=== PATIENT | female | born 1980 | race Two or more races ===

== ENCOUNTER → 2017-11-24 | Emergency (ER) | payer OTHER ==
[~2017-11-24] VITALS: Ht 162.6 cm; Wt 99.3 kg
[~2017-11-24] MED LIST: ALBUTEROL0.63 MG/3 IH; AMOX1TAB12 PO; BENADRYL25 MG PO; DOLOGEN CAPLET1 TAB PO; FLOVENT HFA12 G1 IH; GILTUSS TR TAB1 EACH PO; HYDROCORTISONE28 G3 TP; INTESTINEX1 CAP PO; IRON1 TA1; MEDROL4 MG PO; MEDROLPACK PO; MOTRIN800 MG PO; NEURONTIN800 MG PO; ORPH100T PO; OSEL75CA PO; PRENATAL1 TAB; PROTONIX40 MG PO; PROVENTIL3 ML/2.5 M IH; QVAR7.3 G1 IH; SINGULAIR 10MG10 MG PO; SINGULAIR10 MG; TESSALON PERLE100 M1 PO; TUSSI PRES-B L120 M1 PO; TUSSI-PRES LIQ118 ML PO; XOPENEX HFA15 GM IH; XOPENEX1.25 MG/0. IH; ZITHROMAX TRI-500 MG PO; ZYNCOF 20-400120 ML PO; ZYRTEC10 M3 PO; [UNRECOGNIZED DRUG - OTHER]
== END | disposition home or self-care (01) ==
LOC: ER 10:03
DX: J45.998 Other asthma (principal)

== ENCOUNTER 2018-02-07 10:22 | Emergency (ER) | payer OTHER ==
[~2018-02-07] VITALS: Ht 162.6 cm; Wt 95.3 kg
[2018-02-07] MEDS ORDERED: ALBUTEROL2.5 MG/3 M (10:51)
[2018-02-07] MEDS ORDERED: SINGULAIR10 MG (10:52)
== END 2018-02-07 13:48 | disposition home or self-care (01) ==
LOC: ER 10:22
DX: J45.998 Other asthma (principal)

== ENCOUNTER 2018-02-15 17:03 | Emergency (ER) | payer OTHER ==
[~2018-02-15] VITALS: Ht 162.6 cm; Wt 94.8 kg
[~2018-02-15 17:03] MED LIST changes: +ALBUTEROL2.5 MG/3 M
== END 2018-02-15 20:32 | disposition home or self-care (01) ==
LOC: ER 17:03
DX: J06.9 Acute upper respiratory infection, unspecified (principal); J11.1 Influenza due to unidentified influenza virus with other respiratory manifestations; L30.9 Dermatitis, unspecified

== ENCOUNTER 2018-04-28 11:47 | Emergency (ER) | payer OTHER ==
[~2018-04-28] VITALS: Ht 162.6 cm; Wt 98.0 kg
== END 2018-04-28 13:05 | disposition home or self-care (01) ==
LOC: ER 11:47
DX: R06.02 Shortness of breath (principal)

== ENCOUNTER 2018-06-03 05:13 | Emergency (ER) | payer OTHER ==
[~2018-06-03] VITALS: Ht 162.6 cm; Wt 99.8 kg
== END 2018-06-03 12:56 | disposition home or self-care (01) ==
LOC: ER 05:13
DX: J06.9 Acute upper respiratory infection, unspecified (principal); J40 Bronchitis, not specified as acute or chronic

== ENCOUNTER 2018-08-30 16:27 | Emergency (ER) | payer OTHER ==
[~2018-08-30] VITALS: Ht 162.6 cm; Wt 98.0 kg
== END 2018-08-30 18:19 | disposition home or self-care (01) ==
LOC: ER 16:27
DX: J06.9 Acute upper respiratory infection, unspecified (principal)

== ENCOUNTER 2018-11-17 08:53 | Emergency (ER) | payer OTHER ==
[~2018-11-17] VITALS: Ht 162.6 cm; Wt 98.9 kg
[2018-11-17] MEDS ORDERED: SINGULAIR 4MG4 MG (09:28)
== END 2018-11-17 14:47 | disposition home or self-care (01) ==
LOC: ER 08:53
DX: J45.998 Other asthma (principal)

== ENCOUNTER 2018-12-13 11:22 | Emergency (ER) | payer OTHER ==
[~2018-12-13] VITALS: Ht 162.6 cm; Wt 99.8 kg
[~2018-12-13 11:22] MED LIST changes: +SINGULAIR 4MG4 MG
[2018-12-13] MEDS ORDERED: ALBUTEROL2.5 MG/3 M IH (11:42)
== END 2018-12-13 20:38 | disposition home or self-care (01) ==
LOC: ER 11:22
DX: J45.998 Other asthma (principal)

== ENCOUNTER 2019-02-16 15:42 | Emergency (ER) | payer OTHER ==
[~2019-02-16] VITALS: Ht 162.6 cm; Wt 98.0 kg
[~2019-02-16 15:42] MED LIST changes: +ALBUTEROL2.5 MG/3 M IH
[2019-02-17] MEDS ORDERED: ALBUTEROL0.63 MG/3 (19:43)
== END 2019-02-16 17:45 | disposition home or self-care (01) ==
LOC: ER 15:42
DX: R06.02 Shortness of breath (principal)

== ENCOUNTER 2019-02-17 19:19 | Emergency (ER) | payer OTHER ==
[~2019-02-17] VITALS: Ht 162.6 cm; Wt 98.0 kg
[2019-02-17] MEDS ORDERED: ALBUTEROL0.63 MG/3 (19:43)
== END 2019-02-17 21:50 | disposition home or self-care (01) ==
LOC: ER 19:19
DX: J45.998 Other asthma (principal)

== ENCOUNTER 2019-05-04 20:39 | Emergency (ER) | payer OTHER ==
[~2019-05-04] VITALS: Ht 162.6 cm; Wt 99.3 kg
[~2019-05-04 20:39] MED LIST changes: +ALBUTEROL0.63 MG/3
[2019-05-04] MEDS ORDERED: SINGULAIR10 MG (21:22)
== END 2019-05-04 23:53 | disposition home or self-care (01) ==
LOC: ER 20:39
DX: B34.9 Viral infection, unspecified (principal); G44.209 Tension-type headache, unspecified, not intractable

== ENCOUNTER 2019-05-16 10:44 | Emergency (ER) | payer OTHER ==
[~2019-05-16] VITALS: Ht 160 cm; Wt 80.7 kg
[2019-05-17] MEDS ORDERED: AZITHROMYCIN250 MG PO (08:36)
[2019-05-17] MEDS ORDERED: MEDROLPACK PO (08:36)
== END 2019-05-17 08:59 | disposition home or self-care (01) ==
LOC: ER 10:44
DX: B96.0 Mycoplasma pneumoniae [M. pneumoniae] as the cause of diseases classified elsewhere (principal); J45.998 Other asthma; R50.9 Fever, unspecified

== ENCOUNTER 2019-06-16 09:04 | Emergency (ER) | payer OTHER ==
[~2019-06-16] VITALS: Ht 162.6 cm; Wt 99.3 kg
[~2019-06-16 09:04] MED LIST changes: +AZITHROMYCIN250 MG PO
== END 2019-06-16 17:52 | disposition home or self-care (01) ==
LOC: ER 09:04
DX: J45.998 Other asthma (principal); R05 Cough

== ENCOUNTER 2019-07-11 09:59 | Emergency (ER) | payer OTHER ==
[~2019-07-11] VITALS: Ht 162.6 cm; Wt 99.8 kg
[2019-07-11] MEDS ORDERED: SINGULAIR10 MG (10:14)
[2019-07-11] MEDS ORDERED: TUSSIN DM LIQU118 ML PO (14:18)
[2019-07-11] MEDS ORDERED: IRON1TAB4 PO (14:18)
[2019-07-11] MEDS ORDERED: IPRAT-ALBUT 0.5-3 ML IH (14:18)
[2019-07-11] MEDS ORDERED: BUDESONIDE0.5 MG/2 M IH (14:18)
[2019-07-11] MEDS ORDERED: ZITHROMAX500 MG PO (14:18)
== END 2019-07-11 14:27 | disposition home or self-care (01) ==
LOC: ER 09:59
DX: J45.998 Other asthma (principal); J06.9 Acute upper respiratory infection, unspecified; B96.0 Mycoplasma pneumoniae [M. pneumoniae] as the cause of diseases classified elsewhere; D50.8 Other iron deficiency anemias

== ENCOUNTER 2019-07-24 17:43 | Emergency (ER) | payer OTHER ==
[~2019-07-24] VITALS: Ht 162.6 cm; Wt 99.8 kg
[~2019-07-24 17:43] MED LIST changes: +BUDESONIDE0.5 MG/2 M IH; +IPRAT-ALBUT 0.5-3 ML IH; +IRON1TAB4 PO; +TUSSIN DM LIQU118 ML PO; +ZITHROMAX500 MG PO
== END 2019-07-24 20:47 | disposition home or self-care (01) ==
LOC: ER 17:43
DX: J45.998 Other asthma (principal)

== ENCOUNTER 2019-08-05 19:07 | Emergency (ER) | payer OTHER ==
[~2019-08-05] VITALS: Ht 162.6 cm; Wt 98.9 kg
[2019-08-05] MEDS ORDERED: MEDROLPACK PO (23:29)
[2019-08-05] MEDS ORDERED: TUSNEL LIQUID178 ML PO (23:29)
[2019-08-05] MEDS ORDERED: CLARITIN10 M1 PO (23:29)
[2019-08-05] MEDS ORDERED: DICLOFENAC SODI75 MG PO (23:29)
== END 2019-08-06 00:12 | disposition home or self-care (01) ==
LOC: ER 19:07
DX: J45.998 Other asthma (principal)

== ENCOUNTER 2019-09-03 10:43 | Emergency (ER) | payer OTHER ==
[~2019-09-03] VITALS: Ht 162.6 cm; Wt 99.8 kg
[~2019-09-03 10:43] MED LIST changes: +CLARITIN10 M1 PO; +DICLOFENAC SODI75 MG PO; +TUSNEL LIQUID178 ML PO
== END 2019-09-03 17:33 | disposition home or self-care (01) ==
LOC: ER 10:43
DX: J45.998 Other asthma (principal)

== ENCOUNTER 2019-10-24 09:46 | Emergency (ER) | payer OTHER ==
[~2019-10-24] VITALS: Ht 162.6 cm; Wt 99.8 kg
== END 2019-10-24 11:57 | disposition home or self-care (01) ==
LOC: ER 09:46
DX: M54.5 Low back pain (principal)

== ENCOUNTER 2019-11-02 10:07 | Emergency (ER) | payer OTHER ==
[~2019-11-02] VITALS: Ht 162.6 cm; Wt 105.2 kg
== END 2019-11-02 11:32 | disposition home or self-care (01) ==
LOC: ER 10:07
DX: J45.998 Other asthma (principal)

== ENCOUNTER 2019-11-07 23:57 | Inpatient (IN) | payer OTHER ==
[~2019-11-07] VITALS: Ht 165.1 cm; Wt 108.0 kg
--- NOTE | 2019-11-08 00:06 | NUR ---
PACIENTE REFIERE ASTMA CON EVOLUCION DE DOS SURESH.
--- NOTE | 2019-11-08 00:11 | NUR ---
PACIENTE REFIERE ASTMA Y TOS CON EVOLUCION DE DOS SURESH. ANTES DE LLEGAR SE SANTIAGO TERAPIA CON ALBUTEROL.
--- NOTE | 2019-11-08 01:05 | NUR ---
PT ALERTA Y ORIENTADA X3 ESFERAS SE LE ORIENTA SOBRE TX Y REFIERE ENTEDER. SE MARU MUESTRAS DE HUBERT Y VENOPUNCION CON TECNICAS ASEPTICAS. SE ADMINISTRAN MEDICAMENTOS ORDENADOS. PT TOLERA TX. PT MANEJADA POR MS DELACRUZ.
--- NOTE | 2019-11-08 04:03 | NUR ---
PT RE EVALUADA POR DR JAUN CAI ORDENA CONTINUAR CON TERAPIAS RESPIRATORIAS LAS CUALES SE NOTIFICAN A MRS CARBALLODO.
--- NOTE | 2019-11-08 07:56 | NUR ---
PACIENTE ALERTA Y ORIENTADA SE OBSERVA CON H/LOCK PATENTE YURY DEDEMA , SE MANTEIEN OBSERVACION PO RCAMBIOSEN WALTERS CONDICON..
[2019-11-16] MEDS ORDERED: ALBUTEROL2.5 MG/3 M IH (13:30)
[2019-11-16] MEDS ORDERED: MUCINEX600 MG PO (13:31)
[2019-11-16] MEDS ORDERED: FLOVENT HFA12 GM IH (13:33)
[2019-11-16] MEDS ORDERED: BUDESONIDE0.5 MG/2 M IH (13:33)
== END 2019-11-16 14:18 | disposition home or self-care (01) | DRG 202 ==
LOC: ER 23:57 → MEDJ 11-08 15:39 → SEC-K 11-08 15:39 → MEDI 11-09 16:04 → SURG 11-10 15:11 → MEDJ 11-12 18:23
PROVIDERS: ADMIT Internal Medicine
PROC: 4A033R1 Measurement of Arterial Saturation, Peripheral, Percutaneous Approach (ICD-10-PCS; principal; 2019-11-08)
PROC: 3E0F7GC Introduction of Other Therapeutic Substance into Respiratory Tract, Via Natural or Artificial Opening (ICD-10-PCS; 2019-11-08)
DX: J45.42 Moderate persistent asthma with status asthmaticus (principal); E87.3 Alkalosis; B96.0 Mycoplasma pneumoniae [M. pneumoniae] as the cause of diseases classified elsewhere; R51 Headache; Z53.29 Procedure and treatment not carried out because of patient's decision for other reasons

== ENCOUNTER 2020-02-29 08:11 | Emergency (ER) | payer OTHER ==
[~2020-02-29] VITALS: Ht 162.6 cm; Wt 99.8 kg
[~2020-02-29 08:11] MED LIST changes: +FLOVENT HFA12 GM IH; +MUCINEX600 MG PO
== END 2020-02-29 10:08 | disposition home or self-care (01) ==
LOC: ER 08:11
DX: J45.31 Mild persistent asthma with (acute) exacerbation (principal)

== ENCOUNTER 2020-03-06 21:40 | Emergency (ER) | payer OTHER ==
[~2020-03-06] VITALS: Ht 162.6 cm; Wt 99.8 kg
== END 2020-03-06 23:06 | disposition home or self-care (01) ==
LOC: ER 21:40
DX: J45.998 Other asthma (principal)

== ENCOUNTER 2020-06-18 08:53 | Emergency (ER) | payer OTHER ==
[~2020-06-18] VITALS: Ht 162.6 cm; Wt 99.8 kg
== END 2020-06-18 14:54 | disposition home or self-care (01) ==
LOC: ER 08:53
DX: N93.8 Other specified abnormal uterine and vaginal bleeding (principal)

== ENCOUNTER 2020-10-28 22:58 | Inpatient (IN) | payer OTHER ==
[~2020-10-28] VITALS: Ht 162.6 cm; Wt 86.2 kg
[2020-10-28] MEDS ORDERED: CLARITIN5 MG (23:15)
[2020-10-28] MEDS ORDERED: SINGLE USE SWA1 EACH (23:15)
[2020-10-30] MEDS ORDERED: IRON325 MG PO (09:12)
== END 2020-10-30 09:52 | disposition home or self-care (01) | DRG 812 ==
LOC: ER 22:58 → SEC-K 10-29 07:59 → MEDI 10-29 16:39
PROVIDERS: ADMIT Internal Medicine; ATTEND Internal Medicine
PROC: 30233N1 Transfusion of Nonautologous Red Blood Cells into Peripheral Vein, Percutaneous Approach (ICD-10-PCS; principal; 2020-10-29)
DX: D50.8 Other iron deficiency anemias (principal); J45.42 Moderate persistent asthma with status asthmaticus; Z20.822 Contact with and (suspected) exposure to COVID-19

== ENCOUNTER 2021-04-06 08:40 | Emergency (ER) | payer OTHER ==
[~2021-04-06] VITALS: Ht 162.6 cm; Wt 88.5 kg
[~2021-04-06 08:40] MED LIST changes: +CLARITIN5 MG; +IRON325 MG PO; +SINGLE USE SWA1 EACH
[2021-04-06] MEDS ORDERED: SINGULAIR 10MG10 MG PO (08:54)
[2021-04-06] MEDS ORDERED: ZITHROMAX500 MG PO (12:36)
== END 2021-04-06 13:25 | disposition home or self-care (01) ==
LOC: ER 08:40
DX: R05 Cough (principal); B96.0 Mycoplasma pneumoniae [M. pneumoniae] as the cause of diseases classified elsewhere; Z11.52 Encounter for screening for COVID-19

== ENCOUNTER 2021-10-22 11:48 | Emergency (ER) | payer OTHER ==
[~2021-10-22] VITALS: Ht 162.6 cm; Wt 84.4 kg
[2021-10-22] MEDS ORDERED: [UNRECOGNIZED DRUG - CODE] PO (16:10)
== END 2021-10-22 16:18 | disposition home or self-care (01) ==
LOC: ER 11:48
DX: B34.9 Viral infection, unspecified (principal); D64.9 Anemia, unspecified; U07.1 COVID-19

== ENCOUNTER 2021-11-09 13:32 | Emergency (ER) | payer OTHER ==
[~2021-11-09] VITALS: Ht 160 cm; Wt 65.8 kg
[~2021-11-09 13:32] MED LIST changes: +[UNRECOGNIZED DRUG - CODE] PO
[2021-11-09] MEDS ORDERED: NORFLEX100MG PO (18:21)
[2021-11-09] MEDS ORDERED: KETO10TA2 PO (18:21)
== END 2021-11-09 18:54 | disposition home or self-care (01) ==
LOC: ER 13:32
DX: M54.9 Dorsalgia, unspecified (principal); R30.0 Dysuria

== ENCOUNTER 2022-02-25 21:17 | Emergency (ER) | payer OTHER ==
[~2022-02-25] VITALS: Ht 154.9 cm; Wt 72.6 kg
[~2022-02-25 21:17] MED LIST changes: +KETO10TA2 PO; +NORFLEX100MG PO
[2022-02-25] MEDS ORDERED: CLARITIN10 M1 PO (21:32)
[2022-02-26] MEDS ORDERED: DICLOFENAC SOD100 MG PO ×2 (03:01→03:03)
[2022-02-26] MEDS ORDERED: CEPHALEXIN500 MG PO ×2 (03:01→03:03)
== END 2022-02-26 03:16 ==
LOC: ER 21:17
DX: N39.0 Urinary tract infection, site not specified (principal); R30.0 Dysuria; M54.59 Other low back pain; R73.03 Prediabetes

== ENCOUNTER 2022-03-22 16:24 | Emergency (ER) | payer OTHER ==
[~2022-03-22] VITALS: Ht 152.4 cm; Wt 78.9 kg
[~2022-03-22 16:24] MED LIST changes: +CEPHALEXIN500 MG PO; +DICLOFENAC SOD100 MG PO
[2022-03-22] MEDS ORDERED: CLARITIN10 M1 PO (16:44)
[2022-03-22] MEDS ORDERED: ZITHROMAX500 MG PO (19:15)
[2022-03-22] MEDS ORDERED: XOPENEX0.63 MG/3 IH (19:16)
== END 2022-03-22 19:23 | disposition home or self-care (01) ==
LOC: ER 16:24
DX: J45.42 Moderate persistent asthma with status asthmaticus (principal); R06.02 Shortness of breath; Z20.822 Contact with and (suspected) exposure to COVID-19

== ENCOUNTER 2022-06-03 10:38 | Emergency (ER) | payer OTHER ==
[~2022-06-03] VITALS: Ht 162.6 cm; Wt 81.6 kg
[~2022-06-03 10:38] MED LIST changes: +XOPENEX0.63 MG/3 IH
== END 2022-06-03 11:47 | disposition home or self-care (01) ==
LOC: ER 10:38
DX: J30.81 Allergic rhinitis due to animal (cat) (dog) hair and dander (principal); J45.909 Unspecified asthma, uncomplicated

== ENCOUNTER → 2022-11-27 | Emergency (ER) | payer OTHER ==
[~2022-11-27] VITALS: Ht 162.6 cm; Wt 80.3 kg
== END | disposition home or self-care (01) ==
LOC: ER 15:46
DX: N93.9 Abnormal uterine and vaginal bleeding, unspecified (principal)

== ENCOUNTER 2023-10-18 13:52 | Emergency (ER) | payer OTHER ==
[~2023-10-18] VITALS: Ht 162.6 cm; Wt 86.2 kg
[2023-10-18 17:20] LABS: HEMATOCRIT 30.8 % (36.0-45.00); HEMOGLOBIN 9.8 g/dL (12.0-15.00); MEAN CORPUSCULAR HGB CONC 31.9 g/dl (32.0-36.0); PLATELET COUNT 218 K/uL (150-450); RED BLOOD COUNT 4.47 M/uL (4.00-6.00); RED CELL DISTRIBUTION WIDTH 17.3 % (11.5-14.5)
[2023-10-18 17:36] LABS: CALCIUM 8.6 mg/dL (8.5-10.1); CREATININE SERUM 0.71 mg/dL (0.55-1.02); GFR 89.85; POTASSIUM 3.65 mEq/L (3.5-5.1)
[2023-10-18 18:03] LABS: PH,URINE 5.5 (5.0-8.0); URINE APPEARANCE Cloudy; URINE BILIRRUBIN Negative (NEGATIVE); URINE BLOOD Small; URINE COLOR Yellow; URINE GLUCOSE Negative (NEGATIVE); URINE LEUKOCYTE Negative; URINE NITRATE Negative; URINE PROTEIN Negative (NEGATIVE); URINE UROBILINOGEN 0.2 E.U./dl
[2023-10-18 18:04] LABS: URINE BACTERIA 369.1 uL (0.0-1933); URINE EPITHELIAL CELLS 96.8 uL (0.0-38.8); URINE RBC 14.8 uL (0.0-20.8); URINE WBC 4.6 uL (0.0-23.2)
== END 2023-10-18 18:31 | disposition home or self-care (01) ==
LOC: ER 13:53
PROVIDERS: Emergency Medicine
DX: R10.9 Unspecified abdominal pain (principal); Z87.898 Personal history of other specified conditions; Z20.822 Contact with and (suspected) exposure to COVID-19